=== PATIENT | female | born 1985 | race Caucasian/White ===

== ENCOUNTER 2021-12-01 04:55 | Outpatient (CLI) | payer OTHER | END 2021-12-01 08:37 | disposition home or self-care (01) | LOC: OBS/DEL 04:55 → NST 04:55 | PROVIDERS: ATTEND Obstetrics & Gynecology | DX: Z34.83 Encounter for supervision of other normal pregnancy, third trimester (principal) ==

== ENCOUNTER 2021-12-03 05:09 | Inpatient (IN) | payer OTHER ==
[~2021-12-03] VITALS: Ht 170.2 cm; Wt 93.0 kg
[2021-12-03] MEDS ORDERED: IRON236 MG PO (05:36)
[2021-12-03] MEDS ORDERED: PRENATAL TABLE1 EAC1 PO (05:36)
== END 2021-12-05 13:02 | disposition home or self-care (01) | DRG 807 ==
LOC: LDR 05:09 → OB/GYN 05:09
PROVIDERS: ADMIT Obstetrics & Gynecology; ATTEND Obstetrics & Gynecology
PROC: 10E0XZZ Delivery of Products of Conception, External Approach (ICD-10-PCS; principal; 2021-12-03)
PROC: 0KQM0ZZ Repair Perineum Muscle, Open Approach (ICD-10-PCS; 2021-12-03)
PROC: 4A1HXCZ Monitoring of Products of Conception, Cardiac Rate, External Approach (ICD-10-PCS; 2021-12-03)
DX: O70.1 Second degree perineal laceration during delivery (principal); Z37.0 Single live birth; Z3A.37 37 weeks gestation of pregnancy; Z20.822 Contact with and (suspected) exposure to COVID-19